=== PATIENT | male | born 1970 | race Caucasian/White ===

== ENCOUNTER → 2019-12-02 | Outpatient (CLI) | payer BC ==
--- NOTE | 2019-12-03 07:47 | CT ---
EXAMINATION TYPE: CT soft tissue neck w con DATE OF EXAM: 12/02/2019 COMPARISON: HISTORY: f/u thyroid mass, c/o dysphagia CT DLP: 347 mGycm CONTRAST: CT scan of the neck is performed with IV Contrast, patient injected with 100 mL of Isovue 300. Contrast enhanced CT of the neck was performed from the skull base through the lung apices. AIRWAY: The supraglottic, glottic, and subglottic portions of the airway appear patent and free of mass. SALIVARY GLANDS: The submandibular and parotid glands are free of mass or inflammatory process. THYROID GLAND: 4.5 mm left thyroid nodule noted. No additional thyroid nodules seen. No distinct para thyroid mass identified. LYMPH NODES: No adenopathy seen greater than 1cm. LUNG APICES: No nodule or mass is seen. OTHER: Vascular structures are patent. Mild degenerative change of the cervical spine. No abscess s een. IMPRESSION: 4.5 mm left thyroid nodule noted. No additional thyroid nodules seen. No distinct parathyroid mass id entified.
== END | disposition home or self-care (01) ==
LOC: RADCTMAIN 15:52
PROVIDERS: ATTEND Surgery Plastic and Reconstructive Surgery
DX: E04.1 Nontoxic single thyroid nodule (principal)
CPT/HCPCS: 70491; Q9967

== ENCOUNTER → 2019-12-07 | Outpatient (CLI) | payer BC ==
--- NOTE | 2019-12-07 10:19 | FL ---
EXAMINATION TYPE: FL barium swallow DATE OF EXAM: 12/07/2019 CLINICAL HISTORY: Choking sensation for approximately 8 months, dysphagia. History of parathyroid rem oval in 2012. TECHNIQUE: A double contrast esophagram is performed utilizing air and barium. A total of 1 minute and 42 seconds of fluoroscopic time was utilized during procedure. 50 fluoroscopic images were saved during the examination. COMPARISON: None FINDINGS: The esophagus shows normal motility and emptying into the stomach. Very small cervical oste ophytes minimally impressing upon the posterior lower cervical esophagus. No evidence of hiatal herni a or stricture noted. Moderate gastroesophageal reflux was seen during real time performance of this study in the supine position only. IMPRESSION: 1. Moderate degree gastroesophageal reflux in the gravity independent portion of the examination. 2. No hiatal hernia or stricture seen. 3. No evidence of laryngeal penetration or aspiration. 4. Very small lower cervical spine anterior osteophytes minimally impressing upon the lower cervical esophagus.
== END | disposition home or self-care (01) ==
LOC: RADUSWWP 08:54
PROVIDERS: ATTEND Surgery Plastic and Reconstructive Surgery
DX: K21.9 Gastro-esophageal reflux disease without esophagitis (principal)
CPT/HCPCS: 74220

== ENCOUNTER 2019-12-17 08:09 | Day surgery (SDC) | payer BC ==
[2019-12-15 14:18] VITALS: BMI 21.9
[~2019-12-17 08:09] MED LIST: LACTATED RINGERS 1,000 ML IV SCH; LIDOCAINE 1% 20 ML VIAL (10MG/ML) FOR IV START INTRADERMA PRN
[2019-12-17 08:36] VITALS: TEMP 97.8
[2019-12-17] MEDS ORDERED: LIDOCAINE 1% INJ 10MG/ML (20 ML MDV) ONE (08:47)
[2019-12-17] MEDS ORDERED: PROPOFOL 10 MG/ML 20 ML VIAL IV ONE (08:47)
--- NOTE | 2019-12-17 08:52 | P.GSHP ---
History of Present Illness H&P Date: 12/17/19 CHIEF COMPLAINT: GERD and colon screen HISTORY OF PRESENT ILLNESS: The patient is a 49-year-old male who presents with gastroesophageal reflux disease and need for colon screen. Upper and lower endoscopy were offered for further evaluation and management. PAST MEDICAL HISTORY: Please see list. PAST SURGICAL HISTORY: Please see list. MEDICATIONS: Please see list. ALLERGIES: Please see list. SOCIAL HISTORY: No illicit drug use FAMILY HISTORY: No reports of Crohn disease or ulcerative colitis. REVIEW OF ORGAN SYSTEMS: CONSTITUTIONAL: No reports of fevers or chills. GI: Denies any blood in stools or constipation. PHYSICAL EXAM: VITAL SIGNS: Stable GENERAL: Well-developed pleasant in no acute distress. HEENT: No scleral icterus. Extraocular movements grossly intact. Moist buccal mucosa. NECK: Supple without lymphadenopathy. CHEST: Unlabored respirations. Equal bilateral excursions. CARDIOVASCULAR: Regular rate and rhythm. Distal 2+ pulses. ABDOMEN: Soft, nondistended. MUSCULOSKELETAL: No clubbing, cyanosis, or edema. ASSESSMENT: 1. Gastroesophageal reflux disease 2. Colon screen. PLAN: 1. Recommend proceeding with an upper and lower endoscopy Past Medical History Past Medical History: Hyperlipidemia, Hypertension Additional Past Medical History / Comment(s): HAYFEVER, SINUS POLYPS. , PARATHYROID TUMOR SURGERY(2011), FAMILY HX OF COLON CANCER, STATES FEELS LIKE LUMP IN THROAT, LIQUID SOMETIMES GOES DOWN THE WRONG WAY., HOARSENESS, OCCASIONAL ACID REFLUX AT NIGHT. History of Any Multi-Drug Resistant Organisms: None Reported Additional Past Surgical History / Comment(s): PARATHYROIDECTOMY, COLONOSCOPY X3 Past Anesthesia/Blood Transfusion Reactions: Motion Sickness, Postoperative Nausea & Vomiting (PONV) Past Psychological History: No Psychological Hx Reported Smoking Status: Never smoker Past Alcohol Use History: None Reported Past Drug Use History: None Reported - Past Family History Father Family Medical History: Cancer Additional Family Medical History / Comment(s): STAGE 3 COLON CANCER,. PATIENTS GRANDMOTHER, AUNTS AND UNCLES WITH COLON CANCER Medications and Allergies Home Medications Medication Instructions Recorded Confirmed Type Cetirizine HCl [Zyrtec] 10 mg PO HS 12/15/19 12/17/19 History Lisinopril [Zestril] 5 mg PO HS 12/15/19 12/17/19 History Mometasone Furoate [Nasonex Nasal 2 spr EA NOSTRIL HS 12/15/19 12/17/19 History [place]] Simvastatin [Zocor] 20 mg PO HS 12/15/19 12/17/19 History Testosterone [Testosterone 10 MG] 5 pump TOPICAL DAILY 12/15/19 12/17/19 History Allergies Allergy/AdvReac Type Severity Reaction Status Date / Time erythromycin base Allergy Nausea & Verified 12/17/19 08:37 [Erythromycin Base] Vomiting & Diarrhea Surgical - Exam Vital Signs Temp Pulse Resp BP Pulse Ox 97.8 F 105 H 16 123/80 99 12/17/19 08:34 12/17/19 08:34 12/17/19 08:34 12/17/19 08:34 12/17/19 08:34
--- NOTE | 2019-12-17 08:59 | P.PCN ---
Date of Procedure: 12/17/19 Description of Procedure: PREOPERATIVE DIAGNOSIS: Gastroesophageal reflux disease. POSTOPERATIVE DIAGNOSIS: Gastritis. Gastroesophageal reflux disease with erosive esophagitis Diaphragmatic hiatal hernia Gastric polyps OPERATION: Esophagogastroduodenoscopy with biopsies along antrum. SURGEON: Vanessa Sherman MD ANESTHESIA: MAC. INDICATIONS: The patient is a 49-year-old male who presents with a history of reflux disease. Benefits and risks of the procedure were described. Informed consent was ob tained. DESCRIPTION: The patient was brought into the endoscopy suite and laid in the left lateral decubitus position. An Olympus gastroscope was passed along the posterior oropharynx down to the distal esophagus where the squamocolumnar junction was encountered at 37 cm from the incisors. The stomach was entered and no bile reflux was found. Additional findings are listed below. Biopsies with cold forceps were obtained of the antrum. The first through third portion of the duodenum was examined and unremarkable. Retroflexion of the scope confirmed Hill grade 3 lower esophageal valve. The squamocolumnar junction demonstrated LA grade B erosive esophagitis. The stomach was desufflated. The patient tolerated the procedure well. FINDINGS: Squamocolumnar junction 37 cm from the incisors. Diaphragmatic hiatus at 40 cm. Hiatal hernia, 3 cm Hill grade 3 lower esophageal valve. LA grade B erosive esophagitis. No active duodenitis. Chronic gastritis Gastric polyps along gastric cardia RECOMMENDATIONS: Upper endoscopy as needed.
--- NOTE | 2019-12-17 09:17 | P.PCN ---
Date of Procedure: 12/17/19 Description of Procedure: PREOPERATIVE DIAGNOSIS: Colonoscopy screening, high risk Family history colon cancer POSTOPERATIVE DIAGNOSIS: Colonoscopy screening, high risk Family history colon cancer OPERATION: Colonoscopy to the ileocecal valve and appendiceal orifice. SURGEON: Vanessa Sherman MD. ANESTHESIA: MAC. INDICATIONS: The patient is a 49-year-old female who presents for colonoscopy screening. Last colonoscopy 5 years ago. Benefits and risks were described and informed consent was obtained. DESCRIPTION OF PROCEDURE: The patient had undergone Suprep. He had been brought into the operating room and laid in the left lateral decubitus position. After adequate intravenous sedation, the rectum was examined with 2% lidocaine jelly. No external hemorrhoids were encountered. The rectal tone was within normal limits. No lesions were palpated in the rectal vault. An Olympus colonoscope was advanced until the ileocecal valve and appendiceal orifice were clearly viewed. The prep was excellent with clear visualization of the mucosal folds. The scope was removed with visualization of each mucosal fold. No scattered diverticulosis was encountered. No colonic polyps were found. No evidence of focal colitis was found. Retroflexion of the scope demonstrated grade 1 internal hemorrhoids without active bleeding or inflammation. The colon was desufflated. The patient had tolerated the procedure well. Withdrawal time was over 6 minutes. FINDINGS: Aronchick preparation quality scale 1 (1-5) Internal hemorrhoids, grade 1 No external prolapsed hemorrhoids. No arteriovenous malformations. No adenomatous polyps. No focal colitis. RECOMMENDATIONS: Lower endoscopy in 5 years, 2024 Plan - Discharge Summary New Discharge Prescriptions: No Action Simvastatin [Zocor] 20 mg PO HS Mometasone Furoate [Nasonex Nasal [place]] 2 spr EA NOSTRIL HS Cetirizine HCl [Zyrtec] 10 mg PO HS Lisinopril [Zestril] 5 mg PO HS Testosterone [Testosterone 10 MG] 5 pump TOPICAL DAILY Discharge Medication List Cetirizine HCl [Zyrtec] 10 mg PO HS 12/15/19 [History] Lisinopril [Zestril] 5 mg PO HS 12/15/19 [History] Mometasone Furoate [Nasonex Nasal [place]] 2 spr EA NOSTRIL HS 12/15/19 [History] Simvastatin [Zocor] 20 mg PO HS 12/15/19 [History] Testosterone [Testosterone 10 MG] 5 pump TOPICAL DAILY 12/15/19 [History] Follow up Appointment(s)/Referral(s): Vanessa Sherman MD [STAFF PHYSICIAN] - 12/22/19 Patient Instructions/Handouts: *Sur[facility] - (Anesthesia) Endoscopy Discharge Instructions Activity/Diet/Wound Care/Special Instructions: Repeat colonoscopy 5 years, 2024 Discharge Disposition: HOME SELF-CARE
[2019-12-17 09:32] VITALS: RESP 16
[2019-12-17 09:38] VITALS: BP 121/66; PULSE 91
== END 2019-12-17 10:06 | disposition home or self-care (01) ==
LOC: ORWHC2ENDO 08:09
PROVIDERS: ATTEND Surgery Plastic and Reconstructive Surgery
DX: Z12.11 Encounter for screening for malignant neoplasm of colon (principal); Z80.0 Family history of malignant neoplasm of digestive organs; K64.0 First degree hemorrhoids; K29.50 Unspecified chronic gastritis without bleeding; K21.0 Gastro-esophageal reflux disease with esophagitis; K44.9 Diaphragmatic hernia without obstruction or gangrene; K31.7 Polyp of stomach and duodenum; I10 Essential (primary) hypertension; E78.5 Hyperlipidemia, unspecified; E89.2 Postprocedural hypoparathyroidism; Z98.890 Other specified postprocedural states; Z79.899 Other long term (current) drug therapy; Z79.890 Hormone replacement therapy; Z88.1 Allergy status to other antibiotic agents
CPT/HCPCS: 88305; 43239; J2001; J2704; G0105; 45378